=== PATIENT | female | born 1985 | race Caucasian/White ===

== ENCOUNTER → 2018-08-16 18:13 | Outpatient (CLI) | payer BC, SELFPAY ==
[2018-08-16 12:16] VITALS: BMI 22.8
[2018-08-16 19:55] LABS: Chlamydia Trachomatis by PCR Negative (Negative); Neisserai gonorrhoeae by PCR Negative (Negative); Probe Check PASS; Sample Adequacy Control PASS; Specimen Processing Control PASS
[2018-08-22 16:06] LABS: HPV Genotype 16, Aptima Negative (Negative)
[2018-08-23 11:02] LABS: HPV APTIMA, High Risk Positive (Negative); HPV Genotype 18,45 Aptima Negative (Negative)
== END ==
PROVIDERS: Referring Provider Obstetrics & Gynecology; Visit Provider Obstetrics & Gynecology
DX: Z34.90 Encounter for supervision of normal pregnancy, unspecified, unspecified trimester (principal); Z12.4 Encounter for screening for malignant neoplasm of cervix
CPT/HCPCS: 87086; 87088; 87491; 87591; 87624; 88175; G0145

== ENCOUNTER → 2018-08-28 10:18 | Outpatient (CLI) | payer BC, SELFPAY ==
[2018-08-16 12:16] VITALS: BMI 22.8
[2018-08-28 11:04] LABS: Absolute Lymphocyte Count 1.25 X10^3/ul (0.83-4.51); Absolute Neutrophil Count 4.7 X10^3/uL (2.0-7.7); Basophil# 0.02 X10^3/uL; Basophil% 0.3 % (0-1); Eosinophil# 0.08 X10^3/uL; Eosinophils% 1.2 % (0-5); Hematocrit 35.9 % (37-47); Hemoglobin 12.1 g/dl (12.0-15.0); Lymphocyte # 1.25 X10^3/ul (4.0); Lymphocyte % 19.1 % (19-41); Mean Corp Hgb Conc 33.7 g/gl (32-36); Mean Corpuscular Hgb 30.6 pg (27.0-32.0); Mean Corpuscular Volume 90.7 fL (81-99); Mean Platelet Vol. 10.9 fl (6.2-12.0); Monocyte# 0.46 X10^3/uL; Neutrophil # 4.74 X10^3/uL (2.7-7.7); Neutrophil % 72.2 % (47-70); POSITIVE COUNT NO; POSITIVE DIFFERENTIAL NO; POSITIVE MORPHOLOGY NO; Platelet Count 195 K/mm3 (150-450); RBC Distribution Width CV 12.6 % (11.6-14.6); RBC Distribution Width SD 41.9 fl (35.1-43.9); Red Blood Count 3.96 M/mm3 (4.2-5.4); White Blood Count 6.6 K/mm3 (4.4-11.0)
[2018-08-28 12:29] LABS: HIV - WCH Non-Reactive (Nonreactive); Rubella IgG 8.3 IU/mL
[2018-08-29 08:57] LABS: HEPATITIS B SURFACE AG Negative (Negative)
[2018-08-30 01:41] LABS: Rapid Plasmin Reagin (RPR) NONREACTIVE (NONREACTIVE)
== END ==
PROVIDERS: Visit Provider Obstetrics & Gynecology
DX: Z34.90 Encounter for supervision of normal pregnancy, unspecified, unspecified trimester (principal)
CPT/HCPCS: 36415; 85025; 86592; 86703; 86762; 86850; 86900; 87340

== ENCOUNTER → 2018-12-26 | Outpatient (CLI) | payer BC, SELFPAY ==
[2018-12-26 10:22] VITALS: BMI 22.8
[2018-12-26 10:58] LABS: Absolute Lymphocyte Count 1.28 X10^3/ul (0.83-4.51); Absolute Neutrophil Count 5.8 X10^3/uL (2.0-7.7); Basophil# 0.01 X10^3/uL; Basophil% 0.1 % (0-1); Eosinophils% 1.3 % (0-5); Hematocrit 33.5 % (37-47); Hemoglobin 11.5 g/dl (12.0-15.0); Lymphocyte # 1.28 X10^3/ul (4.0); Lymphocyte % 16.8 % (19-41); Mean Corp Hgb Conc 34.3 g/gl (32-36); Mean Corpuscular Hgb 31.4 pg (27.0-32.0); Mean Corpuscular Volume 91.5 fL (81-99); Mean Platelet Vol. 10.3 fl (6.2-12.0); Monocyte# 0.47 X10^3/uL; Monocyte% 6.2 % (0-10); Neutrophil # 5.77 X10^3/uL (2.7-7.7); Neutrophil % 75.5 % (47-70); Platelet Count 193 K/mm3 (150-450); RBC Distribution Width CV 13.2 % (11.6-14.6); Red Blood Count 3.66 M/mm3 (4.2-5.4); White Blood Count 7.6 K/mm3 (4.4-11.0)
[2018-12-26 10:59] LABS: POSITIVE COUNT NO; POSITIVE DIFFERENTIAL NO; POSITIVE MORPHOLOGY NO
[2018-12-26 11:20] LABS: Glucose Challenge Gest 1H 50g 113 mg/dL (70-140)
== END | disposition home or self-care (01) ==
PROVIDERS: Nurse Practitioner Women's Health; Referring Provider Obstetrics & Gynecology; Visit Provider Obstetrics & Gynecology
DX: Z34.90 Encounter for supervision of normal pregnancy, unspecified, unspecified trimester (principal)
CPT/HCPCS: 36415; 82950; 85025

== ENCOUNTER → 2019-02-25 | Outpatient (CLI) | payer BC, SELFPAY ==
[2019-02-19 09:13] VITALS: BMI 22.8
--- NOTE | 2019-02-25 14:14 | US_ITS ---
STUDY: SECOND AND THIRD TRIMESTER OBSTETRICAL ULTRASOUND - LIMITED REASON FOR EXAM: Female, 33 years old. growth LMP: PRIOR ULTRASOUND: None. TECHNIQUE: Transabdominal TECHNICAL QUALITY: Adequate. FINDINGS: There is a single intrauterine fetus. The fetus is in a cephalic presentation. There is demonstrated cardiac activity with a heart rate of 144 bpm. There is a normal amniotic fluid volume. The largest amniotic fluid pocket measures 4.87 cm. The amniotic fluid index (ANA) is 11.99 cm. The placenta is anterior There are Grade 2 placental changes. The cervix measures 3.1 cm in length. BIOMETRY: BPD: 8.69 cm: 35 weeks, 1 days HC: 31.4 cm: 35 weeks, 2 days AC: 31: 35 weeks, 0 days FL: 6.85 cm: 35 weeks, 2 days Age by LMP: 36 weeks, 1 days. JOSE by LMP: March 24, 2019. age by prior US: weeks, days. JOSE by prior US: . age by current US: 35 weeks, 2 days. JOSE by current US: March 30, 2019. Estimated weight: 2580 grams, +/- 376 grams, 23 percentile. US/OB Limited With Biometrics IMPRESSION: Viable intrauterine gestation approximately 35-36 weeks gestational age. No significant abnormality Electronically Signed: Francis Nichols MD at 19:27 EDT , Service support ,
== END | disposition home or self-care (01) ==
LOC: OPUS 14:13
PROVIDERS: Referring Provider Obstetrics & Gynecology; Visit Provider Obstetrics & Gynecology
DX: O09.90 Supervision of high risk pregnancy, unspecified, unspecified trimester (principal); Z3A.00 Weeks of gestation of pregnancy not specified
CPT/HCPCS: 76816

== ENCOUNTER → 2019-02-28 | Outpatient (CLI) | payer BC, SELFPAY ==
[2019-02-28 10:05] VITALS: BMI 22.8
== END | disposition home or self-care (01) ==
LOC: LABSPEC 12:19
PROVIDERS: Referring Provider Nurse Practitioner Women's Health; Visit Provider Nurse Practitioner Women's Health
DX: Z34.90 Encounter for supervision of normal pregnancy, unspecified, unspecified trimester (principal)
CPT/HCPCS: 87081

== ENCOUNTER 2019-03-19 10:45 | Inpatient (IN) | payer BC, SELFPAY ==
[2019-03-19 10:12] VITALS: BMI 22.8
[2019-03-19 10:59] VITALS: BMI 27.9
[2019-03-19 11:54] LABS: Absolute Lymphocyte Count 1.53 X10^3/uL (0.83-4.51); Basophil# 0.03 X10^3/uL; Basophil% 0.5 % (0-1); Eosinophil# 0.06 X10^3/uL; Eosinophils% 0.9 % (0-5); Hematocrit 33.7 % (37-47); Hemoglobin 11.8 g/dL (12.0-15.0); Lymphocyte # 1.53 X10^3/ul (4.0); Lymphocyte % 24.1 % (19-41); Mean Corpuscular Hgb 32.4 pg (27.0-32.0); Mean Corpuscular Volume 92.6 fL (81-99); Mean Platelet Vol. 12.8 fl (6.2-12.0); Monocyte# 0.68 X10^3/uL; Monocyte% 10.7 % (0-10); NRBC Flagged by Analyzer 0 % (0-5); Neutrophil # 4.04 X10^3/uL (2.7-7.7); Neutrophil % 63.6 % (47-70); Platelet Count 131 K/mm3 (150-450); RBC Distribution Width CV 12.5 % (11.6-14.6); RBC Distribution Width SD 42.5 fl (35.1-43.9); Red Blood Count 3.64 M/mm3 (4.2-5.4); White Blood Count 6.4 K/mm3 (4.4-11.0)
[2019-03-19 12:05] LABS: Prothrombin Time (Protime)PT. 12.9 SECONDS (11.7-14.9)
[2019-03-19 12:06] LABS: Partial Thromboplast Time 29.4 Seconds (24.1-36.2)
[2019-03-19 12:23] LABS: ALB/GLOB Ratio 0.7 RATIO (0.9-2.4); AST(SGOT) 25 U/L (15-37); Alanine Aminotransfer ALT/SGPT 15 U/L (13-56); Albumin, Serum 2.6 g/dL (3.2-5.0); Alkaline Phosphatase 201 U/L (45-117); Anion Gap 10 (5-15); BUN 13 mg/dL (7-18); BUN/Creat Ratio 16.8 RATIO (10-20); Calcium,Total 8.3 mg/dL (8.5-10.1); Chloride 109 mmol/L (98-107); Creatinine, Serum 0.77 mg/dL (0.55-1.02); EST Glomerular Filtration Rate 91 mL/min (>60); Est Glom Filt Rate - Afr Amer 110 mL/min (>60); Globulin 3.6 g/dL (2.2-4.2); Glucose 83 mg/dL (74-106); Potassium 3.9 mmol/L (3.5-5.1); Protein, Total 6.2 g/dL (6.4-8.2); Sodium Level 141 mmol/L (136-145); Uric Acid 4.8 mg/dL (2.6-6.0)
--- NOTE | 2019-03-19 12:44 | HP.PCM_ITS ---
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 anatomy scan nl (5) Supervision of high risk , antepartum Status: Acute Comment: PRR JOSE 03/24/19 Girl [place] History and Physical Date of Admission: 03/19/19 Intake Vital Signs 03/19/19 Body Mass Index (BMI) 22.8 03/19/19 Height 5 ft 4 in 03/19/19 Weight: 163 lb 03/19/19 Body Mass Index (BMI) 27.9 03/19/19 Blood Pressure 132/90 H 01/07/19 Body Mass Index (BMI) 22.8 Intake Visit Reasons: 39 WK OB Chief Complaint: est ob Exchange Specialist Required: No Is patient in pain?: No Allergies No Known Allergies Allergy (Verified 03/19/19 10:15) Medications vitamin,calcium,jpzaktnd-adix-rzbwm acid tablet 1 tab PO DAILY 08/16/18 [History Confirmed 03/19/19] Last Menstral Period: 06/17/18 Zika: Zika virus screening: Negative : No PFSH PFSH Medical History Cervical dysplasia (Acute) (Acute) Supervision of normal (Acute) Surgical History History of LEEP (loop electrosurgical excision procedure) of cervix complicating (Acute) Social History (Updated 03/19/19 @ 10:36 by Carolyn Jo MD) current occupational status: employed current occupation: [employer] Smoking Status: Never smoker alcohol intake: former substance use type: does not use what type of physical activity do you participate in: yoga frequency: 3-4 times per week seatbelt use: always do you feel safe at home: Yes additional social history: [employer] Pregancy History 1 Elective abortions Hx Para Spontaneous abortions Hx # Term Pregnancies Ectopic pregnancies Hx # Pregnancies Multiple births # of living children HPI 39 WK OB: Details: EDUARDO ORTIZ is a 33 year old who presents for routine OB visit and has elevated blood pressure and 3+ protein in her urine. she denies any AMIN BV right ow. OB Visit JOSE Calculator Estimated Delivery Date Method Current WG Current Estimate 03/24/19 LMP (Certain) 39w 2d Expected Delivery Route/Plan Specific Issue/Plans flu vaccine: given tdap vaccine: given rhogam: na LARC form signed: shaquille labor support person: [place] pain management: unsure cut cord/dad catch: no : yes PP control planned: [] discussed possible routes of delivery and associated risks: [] special requests: [] Initial Weight: 135 lb Date EGA Weight BP Urine Prot Glucose FHR FuHt Pres Mov CTX Dilation Effaced St Visit Note 09/16/18 13w 0d 135 lb 6 oz (+6 oz) 110/68 145 no vb cramping still some nausea 11/19/18 22w 1d 141 lb 6 oz (+6 lb 6 oz) 108/64 Negative Negative 145 no vb cramping 12/26/18 27w 3d 148 lb (+13 lb) 110/56 Negative Negative 151 27 Active absent NO VB, LOF. Doing well. 01/07/19 29w 1d 151 lb 4 oz (+16 lb 4 oz) 100/82 Negative Negative 160 29 Active absent no vb lof good fm n oregular ctx planning CB class this sunday01/22/19 31w 2d 158 lb (+23 lb) 120/84 Negative Negative 145 31 Active no vb lof good fm n oregular ctx 02/05/19 33w 2d 160 lb (+25 lb) 112/70 Negative Negative 155 33 Cephalic Active no vb lof good fm n oregular ctx 02/19/19 35w 2d 161 lb (+26 lb) 92/60 Negative Negative 150 35 33 Cephalic Active absent no vb lof good fm n oregular ctx check growth scan 02/28/19 36w 4d 162 lb (+27 lb) 112/70 Negative Negative 151 35 Cephalic Active absent Yes -3 1cm, 30%. No VB, LOF. 03/07/19 37w 4d 164 lb 6 oz (+29 lb 6 oz) 114/78 135 36 Cephalic Active absent 2 Yes -2 no vb lof good fm n oregular ctx 03/12/19 38w 2d 164 lb (+29 lb) 116/82 Trace Negative 135 37 Cephalic Active absent 2 Yes no vb lof good fm n oregular ctx 03/19/19 39w 2d 163 lb (+28 lb) 132/90 3+ Negative 130 37 Cephalic Active absent 2.5 will admit for IOL secondary to preeclampsia Visit Notes Visit Date: 03/19/19 ??will admit for IOL secondary to preeclampsia ??Carolyn Jo MD on 03/19/19 Visit Date: 03/12/19 ??no vb lof good fm n oregular ctx ??Carolyn Jo MD on 03/12/19 Visit Date: 03/07/19 ??no vb lof good fm n oregular ctx ??Carolyn Jo MD on 03/07/19 Visit Date: 02/28/19 ??1cm, 30%. No VB, LOF. ??JAZIEL HodgsonC on 02/28/19 Visit Date: 02/19/19 ??check growth scan ??Carolyn Jo MD on 02/19/19 ??no vb lof good fm n oregular ctx ??Carolyn Jo MD on 02/19/19 Visit Date: 02/05/19 ??no vb lof good fm n oregular ctx ??Carolyn Jo MD on 02/05/19 Visit Date: 01/22/19 ??no vb lof good fm n oregular ctx ??Carolyn Jo MD on 01/22/19 Visit Date: 01/07/19 ??no vb lof good fm n oregular ctx planning CB class this sunday ??Carolyn Jo MD on 01/07/19 Visit Date: 12/26/18 ??NO VB, LOF. Doing well. ??ANNALISE Hodgson on 12/26/18 Visit Date: 11/19/18 ??no vb cramping ??Carolyn Jo MD on 11/19/18 Visit Date: 09/16/18 ??no vb cramping still some nausea ??Carolyn Jo MD on 09/16/18 ACOG First Trimester First Trimester: Desire for , Alcohol, Tobacco Cessation, Illicit/Recreational Drug/Substance Use, Intimate Partner Violence, Barriers to care, Unstable Housing, Communication Barriers, Environmental/Work Hazards, Anticipated Course of Care, Toxoplasmosis Precations, Use of Any medications, Sexual activity, Exercise, Dental Care, Sauna/Hot tub use, Seat Belt use, Childbirth classes/Hospital facilities, , Travel, Indications for US and Screening for Aneuploidy Second Trimester Second Trimester: Signs and Symptoms of Labor, Selecting a care provider, Reproductive Life Planning, Care Planning, Tobacco Cessation, Depression/Anxiety and Intimate Partner Violence Third Trimester Third Trimester: Pain Management Plans, Labor support person(s), Immediate Larc, Movement Monitoring and Feeding Yes ; discussed Trial of Labor after Counseling or discussed Circumcision preference Diagnostics Diagnostics Labs Hct 33.5 % (37-47) L 12/26/18 Hgb 11.5 g/dl (12.0-15.0) L 12/26/18 Obstetrics Ultrasound 02/25/19 Glucose 1 Hr 50 gm 113 mg/dL (70-140) 12/26/18 Details: HIV: Urine Culture: Sequential Screen: NIPT Screen: ROS Const Reports system reviewed and no additional complaints, except as docu Card Reports system reviewed and no additional complaints, except as docu Resp Reports system reviewed and no additional complaints, except as docu GI Reports system reviewed and no additional complaints, except as docu, Reports nausea Reports system reviewed and no additional complaints, except as docu Musc Reports system reviewed and no additional complaints, except as docu Exam Const General: cooperative, healthy appearing, comfortable, anxious [facility] Head: normal to inspection Nose: external nose normal Face and sinus: normal facial exam Neck Neck: normal visual inspection, full ROM, no lymphadenopathy Thyroid: thyroid normal Chest Chest palpation & inspection: normal inspection of the chest Resp Effort & Inspection: normal respiratory effort GI Inspection: normal to inspection Palpation: soft, other (gravid uterus) Other: infant vertex and appropriate size for gestational age Other: Cervical Exam: Extrem General: pedal edema Results [id number] Office Urine Glucose Negative Last Edit by Judith Velez on 03/19/19 10:1 4 Office Urine Protein 3+ Last Edit by Judith eVlez on 03/19/19 10:14 Assessment & Plan Problems 1. HPV test positive 2. Supervision of high risk , antepartum O09.90 3. History of loop electrosurgical excision procedure (LEEP) of cervix affecting in third trimester O34.43 4. 39 weeks gestation of Z3A.39 Plan movement and labor precautions reviewed. ACOG trimester education reviewed and updated. see problem list details for updated plan management information and see below for orders placed at this visit. GA appropriate handout given. Orders Orders: POC Urinalysis 2 Dip (Clinic) Today Protein+Creatinine Ratio,Urine Today R80.9 Coding Level of Care Code OB Routine Diagnoses HPV test positive Supervision of high risk , antepartum O09.90 History of loop electrosurgical excision procedure (LEEP) of cervix affecting in third trimester O34.43 ??Trimester: third trimester 39 weeks gestation of Z3A.39 ??Weeks of gestation: 39 weeks UPDATE- I have seen the patient and performed any clinically relevant updates to the history and physical exam. Carolyn Jo MD
[2019-03-19] MEDS: Lactated Ringers 1,000 ML 50 ML IV ×2 (13:09→22:11)
[2019-03-19] MEDS: Oxytocin 30 units/NS 500 ml 30 UNITS/500 ML IV.SOLN IV (13:09)
[2019-03-19 14:02] LABS: Protein, Urine (Random) 17.1 mg/dL (<11.9); Protein:Creat Ratio 250 mg/g CRE (0-200)
[2019-03-19 15:35] VITALS: BP 160/94; PULSE 58
[2019-03-19] MEDS: Ondansetron 4 MG/2 ML Vial IV (16:30)
[2019-03-19] MEDS: proCHLORPERazine 10 MG/2 ML Vial IV (16:39)
[2019-03-19] MEDS: Magnesium Sulfate 20 GM/500 ML BAG IV (17:19)
[2019-03-19 17:21] VITALS: BP 134/84; PULSE 73
[2019-03-19] MEDS: hydrALAZINE 10 MG Tablet PO (17:21)
--- NOTE | 2019-03-19 17:38 | PN_ITS ---
Progress Note 130 moderate variability reactive no decelerations category I tracing [place]: regular bps low now, srom clear fluid but forebag ruptured. continue pitocin now 5/80/0
[2019-03-19] MEDS: fentaNYL-bupivacaine (epidural) 100 ML BAG EPIDURAL (19:30)
[2019-03-19] MEDS: Oxytocin 30 units/NS 500 ml 30 UNITS/500 ML IV.SOLN 334 UNITS IV (21:40)
--- NOTE | 2019-03-19 22:03 | PCM.OPRPT ---
Problem List (1) Pre-eclampsia, mild Status: Acute Comment: developed severe pressures, started on magnesium, platelets 130 (2) HPV test positive Status: Acute Comment: Normal pap-repeat pap in 1 year (3) History of LEEP (loop electrosurgical excision procedure) of cervix complicating Status: Acute Qualifiers: Comment: cervical length screening at 18 weeks (4) Status: Acute Qualifiers: Comment: nipt screening results low risk - Pt notified - Girl, declined carrier and ntd screening. anatomy scan nl (5) Supervision of high risk , antepartum Status: Acute Comment: PRR JOSE 03/24/19 [place] Vaginal Delivery Maternal Presentation: Medically Indicated Induction 33-year-old G1, P0 at 39 weeks 2 days presents for induction of labor secondary to preeclampsia with initially mild features. During labor patient developed severely elevated blood pressures and platelets were noted to be decreased in the 130s which were previously normal and therefore the patient was started on magnesium sulfate and given hydralazine IV. Method of Induction: Pitocin Medical Reason for Induction: Gestational Hypertension Amniotic Membrane Rupture Type: Spontaneous Amniotic Fluid Description: Clear Final JOSE: 03/24/19 Gestational age: 39 Weeks and 2 Days Date of Procedure: 03/19/19 Pre-Operative Diagnosis: preeclampsia with severe features Post-Operative Diagnosis: same Surgery/ Procedure Performed: Spontaneous Vaginal Delivery Type of Anesthesia: Epidural Description of Procedure: Patient began pushing and delivered the head in the ROSAURA presentation. The head was delivered atraumatically . The anterior and posterior shoulders delivered without complication followed by the rest of the and the was placed on the maternal abdomen. Delayed cord clamping was employed for approximately 30 seconds and then per package instructions the cord blood collection kit was completed. Cord was clamped and cut and gentle traction was applied to the cord and the placenta delivered spontaneously immediately following it was noted to be intact with three-vessel cord. The perineum and vagina were inspected and noted to have a second-degree perineal laceration was repaired in the usual fashion. Cord blood had been collected and sent. EBL was 300 cc. Patient and tolerated delivery well. Presentation: ROSAURA Placental Delivery Description: Spontaneous Placenta Disposition: [facility] Cord Vessel Description: 3 Vessels Cord Entanglement: None Estimated Blood Loss: 300 A gender: Female Episiotomy Description: None Laceration: Perineal Extension/lac, 2nd degree Medications given after delivery: IV Pitocin Complications: None Multi Select Codes - Urinary/Genital Urinary/Genital CPT Codes: 78214 Obstetrical Care + Vaginal Delivery
[2019-03-19] MEDS: Oxytocin 30 units/NS 500 ml 30 UNITS/500 ML IV.SOLN 167 UNITS IV (22:10)
[2019-03-20] VITALS (18 sets, daily range): BP systolic 107–145; BP diastolic 62–94; PULSE 68–97; RESP 12–18; TEMP 36.6–37.3; O2SAT 96–99
--- NOTE | 2019-03-20 02:24 | NURSING ---
1000 cc clear yellow urine emptied at the 129 magnesium check. this is the total amount from 9511-1105 to clarify.
[2019-03-20] MEDS: Magnesium Sulfate 20 GM/500 ML BAG IV ×2 (02:32→14:19)
--- NOTE | 2019-03-20 05:55 | NURSING ---
this timing was for the last recovery set of vital signs.
--- NOTE | 2019-03-20 05:57 | NURSING ---
manager willow Kevin aware that this RN obtained BP WNL at this time, although RN cannot recall exact measurement. will be giving report to tomasa IQBAL and will continue to monitor BP per protocal.
--- NOTE | 2019-03-20 06:00 | NURSING ---
Addendum entered by Katherine Dean 03/20/19 06:01: Original Note: this RN confirmed with Dr Gutierres when orders were placed into the computer that she did not want the maintenance dose of hydralazine TID given to this pt. she states she does not want hydralazine continued . just continue to monitor BP per protocal.
[2019-03-20 06:44] LABS: Absolute Lymphocyte Count 1.36 X10^3/uL (0.83-4.51); Absolute Neutrophil Count 11.8 X10^3/uL (2.0-7.7); Basophil# 0.01 X10^3/uL; Basophil% 0.1 % (0-1); Eosinophil# 0.01 X10^3/uL; Eosinophils% 0.1 % (0-5); Hematocrit 30.1 % (37-47); Hemoglobin 10.4 g/dL (12.0-15.0); Lymphocyte # 1.36 X10^3/ul (4.0); Lymphocyte % 9.6 % (19-41); Mean Corp Hgb Conc 34.6 g/dL (32-36); Mean Corpuscular Hgb 32.3 pg (27.0-32.0); Mean Corpuscular Volume 93.5 fL (81-99); Mean Platelet Vol. 12.1 fl (6.2-12.0); Monocyte# 0.96 X10^3/uL; Monocyte% 6.8 % (0-10); NRBC Flagged by Analyzer 0 % (0-5); Neutrophil # 11.79 X10^3/uL (2.7-7.7); Neutrophil % 82.9 % (47-70); Platelet Count 116 K/mm3 (150-450); RBC Distribution Width CV 12.8 % (11.6-14.6); RBC Distribution Width SD 43.8 fl (35.1-43.9); Red Blood Count 3.22 M/mm3 (4.2-5.4); White Blood Count 14.2 K/mm3 (4.4-11.0)
[2019-03-20 06:59] LABS: ALB/GLOB Ratio 0.7 RATIO (0.9-2.4); AST(SGOT) 27 U/L (15-37); Alanine Aminotransfer ALT/SGPT 15 U/L (13-56); Albumin, Serum 2.2 g/dL (3.2-5.0); Alkaline Phosphatase 166 U/L (45-117); Anion Gap 8 (5-15); BUN 9 mg/dL (7-18); BUN/Creat Ratio 11.2 RATIO (10-20); Calcium,Total 6.8 mg/dL (8.5-10.1); Chloride 108 mmol/L (98-107); EST Glomerular Filtration Rate 88 mL/min (>60); Est Glom Filt Rate - Afr Amer 106 mL/min (>60); Estimated Creatinine Clearance 86.37 ml/min; Glucose 117 mg/dL (74-106); Potassium 4.2 mmol/L (3.5-5.1); Protein, Total 5.2 g/dL (6.4-8.2); Sodium Level 140 mmol/L (136-145)
[2019-03-20] MEDS: Naproxen 250 MG Tablet 500 MG PO ×2 (07:35→22:08)
[2019-03-20] MEDS: Senna/Docusate Sodium 1 Tablet PO (22:09)
--- NOTE | 2019-03-20 23:41 | PCM.PN.OB ---
Patient Problems: Active and Suspected Problems (Last Reviewed 03/19/19 @ 10:15 by Judith Velez) Contraception management (Acute) No PA required on IUD- Reference number [id number] Pre-eclampsia, mild (Acute) developed severe pressures, started on magnesium, platelets 130 Subjective: late entry patient seen at 10:30 am doing well no complaints pain controlled no CP SOB N V ambulating well tolerating po lochia moderate, going well - Physical Exam General: Alert, Oriented x3 Vital Signs Temp Pulse Resp BP Pulse Ox 98.2 F 69 12 145/90 H 97 03/20/19 20:01 03/20/19 20:01 03/20/19 20:01 03/20/19 20:01 03/20/19 20:01 Oxygen Delivery Method Room Air Weight: 163 lb Body Mass Index (BMI) 27.9 Intake and Output for Last 24 Hours 03/18/19 03/19/19 03/20/19 23:59 23:59 23:59 Intake Total 2568 / 2568 Output Total 5300 / 5300 Balance -2732 / -2732 Laboratory Tests Past 24 Hrs 03/20/19 03/20/19 06:20 06:20 WBC 14.2 H RBC 3.22 L Hgb 10.4 L Hct 30.1 L MCV 93.5 MCH 32.3 H MCHC 34.6 RDW Std Deviation 43.8 RDW Coeff of Delio 12.8 Plt Count 116 L MPV 12.1 H Immature Gran % (Auto) 0.500 Neut % (Auto) 82.9 H Lymph % (Auto) 9.6 L Williamson % (Auto) 6.8 Eos % (Auto) 0.1 Baso % (Auto) 0.1 Absolute Neuts (auto) 11.8 H Absolute Lymphs (auto) 1.36 Absolute Nucleated RBC 0.00 Nucleated RBC % 0 Sodium 140 Potassium 4.2 Chloride 108 H Carbon Dioxide 24.0 Anion Gap 8 BUN 9 Creatinine 0.80 Estim Creat Clear Calc 86.37 Est GFR (MDRD) Af Amer 106 Est GFR (MDRD) Non-Af 88 BUN/Creatinine Ratio 11.2 Glucose 117 H Calcium 6.8 L Total Bilirubin 0.20 AST 27 ALT 15 Alkaline Phosphatase 166 H Total Protein 5.2 L Albumin 2.2 L Globulin 3.0 Albumin/Globulin Ratio 0.7 L Medical Necessity - Tobacco Use Smoking Status: Never smoker Assessment/Plan All Active Problems (Last Reviewed 03/19/19 @ 10:15 by uJdith Velez) Contraception management (Acute) Pre-eclampsia, mild (Acute) HPV test positive (Acute) Supervision of high risk , antepartum (Acute) History of LEEP (loop electrosurgical excision procedure) of cervix complicating (Acute) (Acute) .s/p PPD # 1 1. routine post delivery care 2. breast feeding- support given 3. rh positive 4. rubella immune severe preeclampsia- labs stable nl bps, magnesium x 24 hours
[2019-03-21] VITALS: BP 140/87; PULSE 57; RESP 18; TEMP 36.7
[2019-03-21 06:40] VITALS: BP 129/87; PULSE 68; RESP 18; TEMP 36.6
[2019-03-21] MEDS: Naproxen 250 MG Tablet 500 MG PO (06:51)
[2019-03-21 08:00] VITALS: BP 137/87; PULSE 71; RESP 18; TEMP 36.8
--- NOTE | 2019-03-21 08:06 | PCM.PN.OB ---
Patient Problems: Active and Suspected Problems (Last Reviewed 03/19/19 @ 10:15 by Judith Velez) Contraception management (Acute) No PA required on IUD- Reference number [id number] Pre-eclampsia, mild (Acute) developed severe pressures, started on magnesium, platelets 130 Subjective: doing well no complaints pain controlled no CP SOB N V ambulating well tolerating po lochia moderate, going well - Physical Exam General: Alert, Oriented x3 Abdomen: Soft, Non Tender, - - FF below U Vital Signs Temp Pulse Resp BP Pulse Ox 97.8 F 68 18 129/87 H 97 03/21/19 06:40 03/21/19 06:40 03/21/19 06:40 03/21/19 06:40 03/20/19 20:01 Oxygen Delivery Method Room Air Weight: 163 lb Body Mass Index (BMI) 27.9 Intake and Output for Last 24 Hours 03/19/19 03/20/19 03/21/19 23:59 23:59 23:59 Intake Total 2568 / 2568 Output Total 5300 / 5300 Balance -2732 / -2732 Medical Necessity - Tobacco Use Smoking Status: Never smoker Assessment/Plan All Active Problems (Last Reviewed 03/19/19 @ 10:15 by Judith Velez) Contraception management (Acute) Pre-eclampsia, mild (Acute) HPV test positive (Acute) Supervision of high risk , antepartum (Acute) History of LEEP (loop electrosurgical excision procedure) of cervix complicating (Acute) (Acute) s/p PPD # 1 1. routine post delivery care 2. breast feeding- support given 3. rh positive 4. rubella nonimmune-MMR 5. CBC for thrombocytopenia 6. enc stool softener 7. plans home today 8. BP check one week
--- NOTE | 2019-03-21 08:11 | DCINST_ITS ---
Additional Instructions: If you experience any of the following, contact your healthcare provider. * Bleeding that soaks a pad every hour for 2 hours * Fever 100.4 or higher * Unrelieved incision or abdominal pain * Swelling, redness, discharge or bleeding from your incision or episiotomy site * Your incision begins to separate * Problems urinating (including inability to urinate or burning while urinating). * Visual changes * Severe headache * Flu-like symptoms * Pain or redness in one of both of your breasts * Pain, warmth, tenderness or swelling in your legs, especially the calf area * Frequent nausea and vomiting * Symptoms of depression or anxiety If you experience any of the following, call 911 or go to the nearest Emergency Room. * Chest pain * Problems breathing * Seizure activity * Partial or complete paralysis of a body part, slurred speech, weakness or drooping of the face, or a sudden inability to walk or hold your balance Allergies/Adverse Reactions: Allergies No Known Allergies Allergy (Verified 03/19/19 10:15) Medications to take at Discharge vitamin,calcium,nyfhvytp-yoam-irsup acid tablet 1 tab PO DAILY 08/16/18 Primary Care Physician: Care Physician,No Primary [Primary Care Provider] - Test Results: Test results from this visit will be discussed in further detail at your follow- up appointment, if applicable.
--- NOTE | 2019-03-21 08:11 | PCM.DCVAG ---
Additional Instructions: If you experience any of the following, contact your healthcare provider. Bleeding that soaks a pad every hour for 2 hours Fever 100.4 or higher Unrelieved incision or abdominal pain Swelling, redness, discharge or bleeding from your incision or episiotomy site Your incision begins to separate Problems urinating (including inability to urinate or burning while urinating). Visual changes Severe headache Flu-like symptoms Pain or redness in one of both of your breasts Pain, warmth, tenderness or swelling in your legs, especially the calf area Frequent nausea and vomiting Symptoms of depression or anxiety If you experience any of the following, call 911 or go to the nearest Emergency Room. Chest pain Problems breathing Seizure activity Partial or complete paralysis of a body part, slurred speech, weakness or drooping of the face, or a sudden inability to walk or hold your balance Allergies/Adverse Reactions: Allergies No Known Allergies Allergy (Verified 03/19/19 10:15) Medications to take at Discharge vitamin,calcium,ooovffpu-sobw-manrp acid tablet 1 tab PO DAILY 08/16/18 Primary Care Physician: Care Physician,No Primary [Primary Care Provider] - Test Results: Test results from this visit will be discussed in further detail at your follow-up appointment, if applicable.
[2019-03-21 08:49] LABS: Hematocrit 32.9 % (37-47); Hemoglobin 11.1 g/dL (12.0-15.0); Mean Corp Hgb Conc 33.7 g/dL (32-36); Mean Corpuscular Hgb 32.5 pg (27.0-32.0); Mean Corpuscular Volume 96.2 fL (81-99); Mean Platelet Vol. 11.6 fl (6.2-12.0); Platelet Count 133 K/mm3 (150-450); RBC Distribution Width CV 13.2 % (11.6-14.6); RBC Distribution Width SD 46.5 fl (35.1-43.9); Red Blood Count 3.42 M/mm3 (4.2-5.4); White Blood Count 9.7 K/mm3 (4.4-11.0)
[2019-03-21 13:30] VITALS: BP 128/82; PULSE 75; RESP 16; TEMP 36.8; O2SAT 98
--- NOTE | 2019-03-26 16:12 | NURSING ---
Mother states doing well. Baby eating well and voiding and stooling. States she really like [employer].
== END 2019-03-21 15:00 | disposition home or self-care (01) | DRG 806 ==
PROVIDERS: Nurse Practitioner Women's Health; Admitting Provider Obstetrics & Gynecology; Referring Provider Obstetrics & Gynecology; Visit Provider Obstetrics & Gynecology
DX: O14.14 Severe pre-eclampsia complicating childbirth (principal); O99.12 Other diseases of the blood and blood-forming organs and certain disorders involving the immune mechanism complicating childbirth; Z37.0 Single live birth; Z3A.39 39 weeks gestation of pregnancy; O70.1 Second degree perineal laceration during delivery; D69.6 Thrombocytopenia, unspecified
CPT/HCPCS: 59025; 59050; 80053; 82565; 82570; 84156; 84450; 84460; 84550; 85025; 85027; 85610; 85730; 86850; 86900; 99218; J7120; G0378; J2405